=== PATIENT | female | born 1955 | race Caucasian/White ===

== ENCOUNTER 2021-03-10 13:54 | Emergency (ER) | payer MEDICARE ==
[~2021-03-10 13:54] MED LIST: 8 HOUR PAIN RE650 MG PO; ALBUTEROL2.5 MG/3 M INH; AMBIEN10 MG PO; AZELASTIN-FLUTI23 GM; BENZONATATE200 MG PO; CBD PO; CLOTRIMAZOLE-BE30 ML TP; CURCUMIN PO; CYCLOBENZAPRINE10 MG PO; CYMBALTA60 MG PO; DEXILANT60 MG PO; FOLIC ACID 1 MG1 MG PO; GLUCOPHAGE500 MG PO; HEARTBURN PREVE20 MG PO; IMITREX100 MG PO; KLONOPIN1 MG PO; LINZESS290 MCG PO; LIPITOR TAB 1010 MG PO; MECLIZINE HCL25 MG PO; MEGA BIOTIN10000 MCG PO; MELATONIN5 MG PO; MIRALAX17 GM PO; MUCOSA DM TABL1 EACH PO; NABUMETONE500 MG PO; OIL PO; OXYBUTYNIN CHLOR5 M1 PO; PEPCID40 MG PO; PRENATAL TABLE1 EAC1 PO; PROAIR HFA8.5 GM INH; SINGULAIR10 MG PO; TIROSINT88 MCG PO; TRIAMCINOLONE A15 GM TP; VERAPAMIL ER120 MG PO; VITAMIN B-122500 MCG SL; VITAMIN D3125 MCG PO; WIXELA 500-501 EACH INH; ZESTRIL2.5 MG PO; ZOFRAN ODT 4 MG4 MG PO; ZYRTEC10 M3 PO; [UNRECOGNIZED DRUG - OTHER] PO
[2021-03-10] MEDS ORDERED: CEPHALEXIN500 MG PO (14:56)
== END 2021-03-10 15:00 | disposition home or self-care (01) ==
LOC: ER1 13:54
DX: L03.031 Cellulitis of right toe (principal); E11.9 Type 2 diabetes mellitus without complications; Z88.0 Allergy status to penicillin; Z79.84 Long term (current) use of oral hypoglycemic drugs
CPT/HCPCS: 99283